=== PATIENT | male | born 1990 | race Caucasian/White ===

== ENCOUNTER 2017-06-14 17:30 | Emergency (ER) | payer SELFPAY ==
[2017-06-14 17:35] VITALS: BP 110/68; PULSE 65; TEMP 98.3; BMI 29.7
--- NOTE | 2017-06-14 18:59 | PDOC ---
History of Present Illness - General Chief Complaint: Injury Stated Complaint: ANKLE INJRUY Time Seen by Provider: 06/14/17 18:25 - History of Present Illness Initial Comments: 06/14/17 18:55 CHIEF COMPLAINT: ankle injury HISTORY OF PRESENT ILLNESS: 26 yo M presents to fast [facility] with pain to R ankle s/p injury. Patient states that he was playing basketball earlier today when his right foot landed on someone else's foot and he "felt a pop." PAST MEDICAL HISTORY: Denies past medical history FAMILY HISTORY: Denies SOCIAL HISTORY: Denies tobacco, alcohol, illicit drug use. SURGICAL HISTORY: Denies ALLERGIES: No known drug allergies REVIEW OF SYSTEMS General/Constitutional: Denies fever or chills. Denies weakness, weight change. Musculoskeletal: Right ankle pain. Denies loss of sensation to foot or toes. Denies neck or back pain. Skin and breasts: Denies rash or easy bruising. PHYSICAL EXAM General Appearance: Well-appearing, appropriately dressed. No apparent distress. HEENT: EOMI, PERRLA. No conjunctival pallor. No photophobia, scleral icterus. Respiratory/Chest: Lungs CTAB. Cardiovascular: RRR. S1, S2. Musculoskeletal/Extremities: Swelling and tenderness to R lateral malleolus. Sensory discrimination intact to toes and foot, pulses 2+ b/l. FROM of all extremities, normal capillary refill. Integumentary: Appropriate color, dry, warm. No cyanosis, erythema, jaundice or rash Neurologic: shuttle inspector II-XII intact. Fully oriented, alert. Appropriate mood/affect. Motor strength 5/5. No appreciable EOM palsy, facial droop or sensory deficit. Past History - Past Medical History Allergies/Adverse Reactions: Allergies Allergy/AdvReac Type Severity Reaction Status Date / Time No Known Allergies Allergy Verified 06/14/17 17:35 Home Medications: Ambulatory Orders Ibuprofen 600 mg PO QID #28 tablet 06/14/17 Other medical history: denies - Suicide/Smoking/Psychosocial Hx Smoking History: Never smoked Information on smoking cessation initiated: No Hx Alcohol Use: No Drug/Substance Use Hx: No Substance Use Type: None *Physical Exam - Vital Signs Last Vital Signs Temp Pulse Resp BP Pulse Ox 98.3 F 65 19 110/68 97 06/14/17 17:33 06/14/17 17:33 06/14/17 17:33 06/14/17 17:33 06/14/17 17:33 ED Treatment Course - RADIOLOGY Radiology Studies Ordered: Category Date Time Status ANKLE & FOOT-RIGHT* [RAD] Stat Radiology 06/14/17 18:26 Taken Medical Decision Making - Medical Decision Making 06/14/17 18:59 26 yo M presents to fast track with pain to R ankle s/p injury. -x-ray R ankle/ft X-ray negative for fracture Chinmay bandage, RICE therapy. Patient refuses crutches, he states he has his step father's walker and will use that. Advised patient to take medication as prescribed and follow up with orthopedics if pain persists past 5-7 days. Advised patient of signs and symptoms for return to ED. Patient verbalized understanding and agrees to plan. *DC/Admit/Observation/Transfer Diagnosis at time of Disposition: Ankle sprain Qualifiers: Encounter type: initial encounter Involved ligament of ankle: unspecified ligament Laterality: right Qualified Code(s): S93.401A - Sprain of unspecified ligament of right ankle, initial encounter - Discharge Dispostion Disposition: HOME Condition at time of disposition: Stable Admit: No - Prescriptions Prescriptions: Ibuprofen 600 mg PO QID #28 tablet - Referrals Referrals: Stepan Oreilly MD [Staff Physician] - - Patient Instructions Printed Discharge Instructions: DI for Ankle Sprain, How To Perform RICE (Rest , Ice, Compress, Elevate) Additional Instructions: Please take medication as prescribed and follow the RICE (rest, ice, compress, elevate) therapy instructions provided. Follow up with orthopedics if pain persists past 5-7 days. If you develop any loss of sensation to your toes or foot, change in color of your foot, increased swelling or pain, or any new or worsening symptoms, please return to the ER.
== END 2017-06-14 19:13 | disposition home or self-care (01) ==
LOC: JERFT 17:30
DX: S93.401A Sprain of unspecified ligament of right ankle, initial encounter (principal); W50.0XXA Accidental hit or strike by another person, initial encounter; Y93.67 Activity, basketball; Y92.9 Unspecified place or not applicable
CPT/HCPCS: 73610-TC-RT; 73630-TC-RT; 99281-25